=== PATIENT | female | born 1935 | race Caucasian/White ===

== ENCOUNTER 2018-05-06 10:02 | Emergency (ER) | payer OTHER, MEDICAID, MEDICARE | END 2018-05-06 12:20 | disposition home or self-care (01) | LOC: E/R 10:02 | DX: R51 Headache (principal); I16.0 Hypertensive urgency; I10 Essential (primary) hypertension; E11.9 Type 2 diabetes mellitus without complications; G30.9 Alzheimer's disease, unspecified | CPT/HCPCS: 70450; 82962; 99284-25 ==